=== PATIENT | male | born 1995 | race Caucasian/White ===

== ENCOUNTER 2021-02-01 22:50 | Emergency (ER) | payer OTHER, SELFPAY ==
[2021-02-01 22:59] VITALS: BP 140/93; PULSE 95; RESP 16; TEMP 36; O2SAT 98; BMI 30.7
--- NOTE | 2021-02-01 23:27 | ED_ITS ---
HPI - Psych General Chief Complaint: Psychiatric Symptoms Stated Complaint: MENTAL HEALTH CONCERNS Time Seen by Provider: 02/01/21 22:58 Source: patient and police Mode of arrival: Ambulatory Limitations: no limitations History of Present Illness HPI Narrative: This is a 25-year-old male who comes with complaint of suicidal ideation. Patient has had multiple stressors including financial stressors, he has had re lationship issues. He states his girlfriend frequently disappears for several days at a time, does not always tell when she is leaving and has been acting in ways that make him think that he is likely being she did on. Patient states that he has tried to talk to her about this but has been unsuccessful. This evening she asked him to come get him he drove all the way from [facility] near couple 2 and a [place] to pick her up and then was told she did need a ride. He went to talk to her and expressed that he was quite anxious and fearful and worried about her shake frequently disappears and that he was having thoughts of harming himself. 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 He told her that he might use it on himself. She left and then called 911 and the police came and met the patient. Patient to the emergency department with PD. He states he drove his own vehicle but they had him meet him here. His father came to secure his farm from . Patient states that he has had thoughts on and off for the past 2 years he had been on me dication about 2 years ago but has not been taking anything regularly. He does not have a counselor. Patient has never tried to harm himself or others. He is interested in assistance and counseling. He states he does not wish to harm himself at this time or anyone else. He states he has never at thoughts of harming others. He is quite anxious about being able to get to work tomorrow as well as take care of his dogs which have not been fed since this morning. Patient states he does have support his father who is here at the emergency department. He states no other medical issues. No allergies to medications. He denies tobacco, occasional alcohol, none this evening. Occasional THC but no other illicit. Related Data Home Medications Medication Instructions Recorded Confirmed ibuprofen 200 mg capsule (Advil 200 mg PO PRN #0 12/10/16 Liqui-Gel) Previous Rx's Medication Instructions Recorded levofloxacin 750 mg tablet 750 mg PO QDAY #6 tab 12/10/16 Allergies Allergy/AdvReac Type Severity Reaction Status Date / Time No Known Allergies Allergy Uncoded 05/26/17 12:14 Review of Systems Review of Systems ROS Unobtainable: All systems reviewed & are unremarkable except as noted in HPI and below Patient History Social History Smoking Status: Never smoker Smoking Status: Never smoker alcohol intake frequency: holidays/special occasions only Substance Use Type: marijuana Exam Narrative Exam Narrative: GENERAL: Alert and oriented x three, well-nourished male in mild distress HEENT: Head normocephalic, atraumatic, EOMI, pupils reactive, face symmetric, moist mucous membranes NECK: Supple, full range of motion CARDIOVASCULAR: Regular rate and rhythm without murmurs, rubs or gallops. RESPIRATORY: Breath sounds equal bilaterally, no wheezes rales or rhonchi. ABDOMEN: Soft, nontender. Normoactive bowel sounds all 4 quadrants. No guarding or rebound, rigidity, no mass : No CVA tenderness EXTREMITIES: Normal range of motion, no clubbing or edema. Neurovascularly intact NEUROLOGICAL: Cranial nerves II through XII grossly intact. Moving all extremities SKIN: Warm, dry, no petechiae, no rashes or lesions. PSYCH: anxiety, depression, suicidal thoughts, no intent, no homicidal thoughts. Initial Vital Signs Initial Vital Signs: Vital Signs Temperature 96.8 F L 02/01/21 22:59 Pulse Rate 95 H 02/01/21 22:59 Respiratory Rate 16 02/01/21 22:59 Blood Pressure 140/93 H 02/01/21 22:59 Pulse Oximetry 98 02/01/21 22:59 Course Orders Ordered: ED Orders 02/01/21 23:25 Complete Blood Count AUTO DIFF Stat Comprehensive Metabolic Panel Stat Ethanol (ETOH) Stat TSH w/ Reflex to FT4 Stat 02/01/21 23:26 Consult to THERAPEUTIC DIETITIAN - [facility] 02/01/21 23:35 COVID19 -Nasal swab/Pre-Proc Stat 02/02/21 00:02 Urine Drug Screen, Rapid Stat Discontinued Medications Lorazepam (Lorazepam 0.5 Mg Tablet) 1 mg PO NOW ONE Stop: 02/01/21 23:28 Reevaluation(s) Reevaluation #1: Lab work, COVID swab do not show any acute medical cause of patient's medically cleared. After long discussion with patient and his father patient would very much like to return home this evening. He states he is willing to spend the night with his father. His father is also willing for the patient to stay with him. He is willing to secure his farm in a safe that has a combination that the patient does not have access to does not know the combination. Both patient and father are interested him receiving counseling. Patient states he has a lunch break tomorrow during work at 4:00 p.m. and could speak with the away. He has also been having are counselor contact him. He is quite anxious about animals and there welfare and financial concerns and missing work and the financial hardship this would cause. Vital Signs Vital signs: Vital Signs - 8 hr 02/02/21 01:44 Pulse Rate 89 Respiratory Rate 20 Blood Pressure 126/92 H Pulse Oximetry 98 MDM - Psych Lab Data Result diagrams: 02/01/21 23:25 02/01/21 23:25 Labs: Lab Results 02/01/21 02/01/21 02/01/21 Range/Units 23:25 23:25 23:25 WBC 14.6 H (4.5-11.0) X10^3/uL RBC 5.13 (4.5-5.9) X10^6/uL Hgb 15.9 (13.5-17.5) g/dL Hct 47.3 (41-53) % MCV 92.1 (80-100) fL MCH 30.9 (26-34) PG MCHC 33.5 (30-36) % RDW 13.3 (11.6-14.8) % Plt Count 197 (150-400) X10^3/uL Neut % (Auto) 84.5 H (50-75) % Lymph % (Auto) 7.9 L (25-40) % Keith % (Auto) 7.1 (3-14) % Eos % (Auto) 0.1 L (2-4) % Baso % (Auto) 0.4 (0-2) % Neut # (Auto) 85016 H (9454-9647) /uL Lymph # (Auto) 1100 (4892-5016) /uL Keith # (Auto) 1000 H (0-900) /uL Eos # (Auto) 0 (0-450) /uL Baso # (Auto) 100 (0-100) /uL Sodium 137 (137-145) mmol/L Potassium 3.7 (3.4-5.1) mmol/L Chloride 104 (98-107) mmol/L Carbon Dioxide 23 (22-32) mmol/L BUN 9 (9-20) mg/dL Creatinine 0.82 (0.66-1.25) mg/dL Estimated GFR > 60.0 (>60) mL/min BUN/Creatinine Ratio 11.0 (6-22) Glucose 113 H (70-100) mg/dL Calcium 9.7 (8.4-10.2) mg/dL Total Bilirubin 0.8 (0.2-1.3) mg/dL AST 27 (17-59) IU/L ALT 32 (<50) IU/L Alkaline Phosphatase 58 (38-126) U/L Total Protein 7.6 (6.3-8.2) g/dL Albumin 4.9 (3.5-5.0) g/dL Globulin 2.7 (1.7-4.1) g/dL Albumin/Globulin Ratio 1.8 (1.0-2.8) TSH 1.53 (0.47-4.68) uIU/mL U Opiates 300ng/mL cut (Negative) Ur Oxycodone Screen (Negative) Urine Methadone Screen (Negative) Ur Barbiturates Screen (Negative) U Tricyclic Antidepress (Negative) Ur Phencyclidine Scrn (Negative) Ur Amphetamines Screen (Negative) U Methamphetamines Scrn (Negative) Ur MDMA Scrn (Ecstasy) (Negative) U Benzodiazepines Scrn (Negative) Urine Cocaine Screen (Negative) U Marijuana (THC) Screen (Negative) Ethyl Alcohol < 10 ( - 10) mg/dL SARS-CoV-2 (PCR) (Negative) 02/01/21 02/01/21 Range/Units 23:35 23:58 WBC (4.5-11.0) X10^3/uL RBC (4.5-5.9) X10^6/uL Hgb (13.5-17.5) g/dL Hct (41-53) % MCV (80-100) fL MCH (26-34) PG MCHC (30-36) % RDW (11.6-14.8) % Plt Count (150-400) X10^3/uL Neut % (Auto) (50-75) % Lymph % (Auto) (25-40) % Keith % (Auto) (3-14) % Eos % (Auto) (2-4) % Baso % (Auto) (0-2) % Neut # (Auto) (6155-1529) /uL Lymph # (Auto) (5922-9379) /uL Keith # (Auto) (0-900) /uL Eos # (Auto) (0-450) /uL Baso # (Auto) (0-100) /uL Sodium (137-145) mmol/L Potassium (3.4-5.1) mmol/L Chloride (98-107) mmol/L Carbon Dioxide (22-32) mmol/L BUN (9-20) mg/dL Creatinine (0.66-1.25) mg/dL Estimated GFR (>60) mL/min BUN/Creatinine Ratio (6-22) Glucose (70-100) mg/dL Calcium (8.4-10.2) mg/dL Total Bilirubin (0.2-1.3) mg/dL AST (17-59) IU/L ALT (<50) IU/L Alkaline Phosphatase (38-126) U/L Total Protein (6.3-8.2) g/dL Albumin (3.5-5.0) g/dL Globulin (1.7-4.1) g/dL Albumin/Globulin Ratio (1.0-2.8) TSH (0.47-4.68) uIU/mL U Opiates 300ng/mL cut Negative (Negative) Ur Oxycodone Screen Negative (Negative) Urine Methadone Screen Negative (Negative) Ur Barbiturates Screen Negative (Negative) U Tricyclic Antidepress Negative (Negative) Ur Phencyclidine Scrn Negative (Negative) Ur Amphetamines Screen Negative (Negative) U Methamphetamines Scrn Negative (Negative) Ur MDMA Scrn (Ecstasy) Negative (Negative) U Benzodiazepines Scrn Negative (Negative) Urine Cocaine Screen Negative (Negative) U Marijuana (THC) Screen Positive H (Negative) Ethyl Alcohol ( - 10) mg/dL SARS-CoV-2 (PCR) Negative (Negative) Discharge Plan Departure Patient Disposition: Home Clinical Impression: Suicidal ideation Instructions: DI for Suicidal Ideation-Adult Activity Restrictions/Additional Instructions: You will receive a phone call from [employer] or [employer] later today, likely around 4pm but may be earlier. If you miss the call please back within the hour. As discussed your father will secure your firearms. If you're feeling suicidal or having suicidal thoughts, contact the suicide hotline (this is also the number for [employer] or [employer] which is resource for counseling and referral as well) this is the same group that will be contacting you later today for recheck. . You may also contact our social professionals here at [facility] at [phone]. They work Wednesday-Wednesday noon to 8pm. I will also leave your contact information for social professionals Carie so that she can reach out to you. Return or call 911 if you are having new worsening thoughts of harming herself, others if you feel you cannot keep herself safe or have other new or concerning symptoms. Prescriptions: No Action ibuprofen [Advil Liqui-Gel] 200 MG capsule 200 mg PO PRNQty: 0 0RF levofloxacin 750 MG tablet 750 mg PO QDAY Qty: 6 0RF
[2021-02-01 23:47] LABS: Alanine Aminotransferase 32 IU/L (<50); Albumin 4.9 g/dL (3.5-5.0); Albumin Globulin Ratio 1.8 (1.0-2.8); Alkaline Phosphatase 58 U/L (38-126); Aspartate Aminotransferase 27 IU/L (17-59); Bilirubin Total 0.8 mg/dL (0.2-1.3); Blood Urea Nitrogen 9 mg/dL (9-20); Calcium 9.7 mg/dL (8.4-10.2); Carbon Dioxide 23 mmol/L (22-32); Chloride 104 mmol/L (98-107); Estimated Glomerular Filt Rate > 60.0 mL/min (>60); Ethanol (ETOH) < 10 mg/dL; Globulin 2.7 g/dL (1.7-4.1); Glucose 113 mg/dL (70-100); HEMOLYSIS 33 (0-50); Potassium 3.7 mmol/L (3.4-5.1); Sodium 137 mmol/L (137-145); Total Protein 7.6 g/dL (6.3-8.2)
[2021-02-01 23:48] LABS: Add Manual Diff / Slide Review NO; Basophils Absolute Auto 100 /uL (0-100); Basophils Percent Auto 0.4 % (0-2); Eosinophils Absolute Auto 0 /uL (0-450); Eosinophils Percent Auto 0.1 % (2-4); Hematocrit 47.3 % (41-53); Hemoglobin 15.9 g/dL (13.5-17.5); Lymphocytes Absolute Auto 1100 /uL (1100-4500); Lymphocytes Percent Auto 7.9 % (25-40); Mean Corpuscular HGB Conc 33.5 % (30-36); Mean Corpuscular Hemoglobin 30.9 PG (26-34); Mean Corpuscular Volume 92.1 fL (80-100); Monocytes Absolute Auto 1000 /uL (0-900); Monocytes Percent Auto 7.1 % (3-14); Neutrophils Absolute Auto 12300 /uL (1500-7000); Neutrophils Percent Auto 84.5 % (50-75); Platelet Count 197 X10^3/uL (150-400); Red Blood Cell Count 5.13 X10^6/uL (4.5-5.9); Red Cell Distribution Width 13.3 % (11.6-14.8); White Blood Cell Count 14.6 X10^3/uL (4.5-11.0)
[2021-02-02 00:01] LABS: COVID19 -Nasal RAPID Negative (Negative)
[2021-02-02 00:23] LABS: UR Morphine/Opiate cutoff 300 Negative (Negative); Ur Creatinine 50 (Normal); Ur Specific Gravity >1.030 (Normal); Urine Amphetamines Negative (Negative); Urine Barbiturates Negative (Negative); Urine Benzodiazepines Negative (Negative); Urine Cocaine Negative (Negative); Urine MDMA Negative (Negative); Urine Methadone Negative (Negative); Urine Methamphetamines Negative (Negative); Urine Oxycodone Negative (Negative); Urine Phencyclidine Negative (Negative); Urine Tetrahydrocannabinol Positive (Negative); Urine Tricyclic Antidepressant Negative (Negative); Urine pH 5 (Normal)
[2021-02-02 00:35] LABS: TSH w/ Reflex to FT4 1.53 uIU/mL (0.47-4.68)
[2021-02-02 01:44] VITALS: BP 126/92; PULSE 89; RESP 20; O2SAT 98
--- NOTE | 2021-02-02 01:46 | PC.NURSE ---
Scheduled [facility] follow-up call for later this afternoon around 1600
--- NOTE | 2021-02-03 16:29 | CM.SWNOTE ---
SURGICAL SPECIALIST f/u Note SURGICAL SPECIALIST calls patient for SURGICAL SPECIALIST f/u consult. Patient endorses he is getting better. Patient endorses that he is communicating with his family daily and they are checking in on him as well. Patient states that he is communicating with his girlfriend and he is hopeful about moving forward with her. Patient endorses that he is looking for MH providers. SURGICAL SPECIALIST collects patient's email address and sends patient resources and providers that accept his insurance. Patient endorses that [facility] checked in with patient yesterday as well. ALESHA Perry
== END 2021-02-02 02:09 | disposition home or self-care (01) ==
PROVIDERS: Emergency Provider Emergency Medicine
DX: R45.851 Suicidal ideations (principal); Z20.822 Contact with and (suspected) exposure to COVID-19
CPT/HCPCS: 36415; 80053; 80305; 80320; 84443; 85025; 87635; 99283; 99284; 99291; 99292; C9803